=== PATIENT | male | born 1980 | race Asian ===

== ENCOUNTER 2019-07-04 22:01 | Emergency (ER) | payer SELFPAY ==
[~2019-07-04] VITALS: Ht 167.6 cm; Wt 68.0 kg
[2019-07-04 22:12] VITALS: Ht 167.6 cm; Wt 68.0 kg
[2019-07-04 23:21] VITALS: BP 136/76
== END 2019-07-04 23:21 | disposition home or self-care (01) ==
LOC: ED 22:01
DX: S61.452A Open bite of left hand, initial encounter (principal); W54.0XXA Bitten by dog, initial encounter; Y93.89 Activity, other specified; Y92.89 Other specified places as the place of occurrence of the external cause; Y99.8 Other external cause status
CPT/HCPCS: 90715